=== PATIENT | female | born 1970 | race Caucasian/White ===

== ENCOUNTER 2017-07-27 11:01 | Inpatient (IN) | payer OTHER ==
[~2017-07-27] VITALS: Ht 162.6 cm; Wt 73.4 kg
[~2017-07-27 11:01] MED LIST: ASCORBIC ACID500 M3 PO; BUPROPION HCL100 MG PO; BUPROPION XL150 MG PO; CELEXA20 MG PO; CIPRO500 MG PO; Ecotrin PO; Flexeril PO; GABAPENTIN300 MG PO; HYDROCODON-ACE1 EA12 PO; KEFLEX500 MG PO; LYRICA150 MG PO; MOBIC15 MG PO; MORPHINE SULFAT15 M1 PO; MULTIPLE VITAM1 EAC4 PO; PERCOCET 7.51 TABLET PO; PREDNISONE50 MG PO; TRAZODONE HCL50 MG PO; ULTRAM50 MG PO; VIIBRYD40 MG PO; Vicodin,Norco 5/325 PO; ZITHROMAX Z-PA250 MG PO; ZOFRAN4 MG PO
[2017-07-27 15:17] VITALS: BP 138/89
[2017-07-27] MEDS ORDERED: MOTRIN800 MG PO (17:27)
[2017-07-27] MEDS ORDERED: ZANAFLEX4 MG PO (17:27)
[2017-07-27] MEDS ORDERED: ATARAX,VISTARIL50 MG PO (17:28)
[2017-07-27] MEDS ORDERED: ELAVIL50 MG PO (17:28)
[2017-07-27] MEDS ORDERED: LYRICA150 MG PO (17:29)
[2017-07-28 09:11] VITALS: BP 144/83
[2017-07-28 16:27] VITALS: BP 144/101
[2017-07-28 16:53] VITALS: BP 153/94
[2017-07-29 07:46] VITALS: BP 143/74
[2017-07-29 15:16] VITALS: BP 136/86
[2017-07-30 07:40] VITALS: BP 146/90
[2017-07-30 15:43] VITALS: BP 122/81
[2017-07-31 08:04] VITALS: BP 134/85
[2017-07-31] MEDS ORDERED: CYMBALTA60 MG PO (10:06)
== END 2017-07-31 13:00 | disposition home or self-care (01) | DRG 885 ==
LOC: 1WEST 11:01 → ENRESERV 13:25 → 1WEST 14:45
DX: F32.2 Major depressive disorder, single episode, severe without psychotic features (principal); F41.9 Anxiety disorder, unspecified; F11.10 Opioid abuse, uncomplicated; J18.9 Pneumonia, unspecified organism; G89.4 Chronic pain syndrome; G43.909 Migraine, unspecified, not intractable, without status migrainosus; Z59.0 Homelessness; Z91.5 Personal history of self-harm; Z79.891 Long term (current) use of opiate analgesic
CPT/HCPCS: 97150 GO; 97165 GO